=== PATIENT | male | born 1960 | race Hispanic/Latino ===

== ENCOUNTER 2021-02-21 19:58 | Emergency (ER) | payer OTHER ==
[2021-02-21 20:44] LABS: Absolute Lymphocytes (CBC) 2.3 K/uL (0.7-4.9); Basophils % 0.5 % (0-1.3); Hematocrit 48.1 % (39.6-49.0); Lymphocytes % 16.8 % (15.3-44.8); MPV 7.2 fL (7.6-11.3); RBC Red Blood Cell Count 5.25 M/uL (4.33-5.43)
[2021-02-21] MEDS ORDERED: ONDANSETRON 4 MG/2 ML VIAL ONE (20:50)
[2021-02-21 21:01] LABS: ALT/SGPT 26 U/L (12-78); AST/SGOT 20 U/L (15-37); Albumin 4.2 g/dL (3.4-5.0); Alkaline Phosphatase 106 U/L (45-117); BUN Blood Urea Nitrogen 12 mg/dL (7-18); Bicarbonate 23 mmol/L (21-32); Bilirubin Direct 0.1 mg/dL (0-0.2); Bilirubin Total 0.3 mg/dL (0.2-1.0); Glucose Level 189 mg/dL (74-106); Lipase 89 U/L (73-393); Potassium 4.1 mmol/L (3.5-5.1); Protein, Total 8.2 g/dL (6.4-8.2); Sodium Level 137 mmol/L (136-145)
--- NOTE | 2021-02-21 23:27 | ER ---
Nurse's Notes [facility] Name: Jc Arrieta Sr Age: 60 yrs Sex: Male : 1960 Arrival Date: 02/21/2021 Time: 20:01 Bed External Waiting Private MD: Diagnosis: Presentation: 02/21 20:16 Chief complaint: Patient states: Abdominal pain, N/V starting at 12:00. Coronavirus kg screen: Client denies travel out of the [place] in the last 14 days. At this time, unable to obtain information related to travel outside the [place] Client presents with at least one sign or symptom that may indicate coronavirus-19. Standard/surgical mask placed on the client. Provider contacted for isolation considerations. Ebola Screen: Patient negative for fever greater than or equal to 101.5 degrees Fahrenheit, and additional compatible Ebola Virus Disease symptoms Patient denies exposure to infectious person. Patient denies travel to an Ebola-affected area in the 21 days before illness onset. 20:16 Method Of Arrival: Wheelchair kg 20:18 Initial Sepsis Screen: Does the patient meet any 2 criteria? No. Patient's initial kg sepsis screen is negative. Does the patient have a suspected source of infection? No. Patient's initial sepsis screen is negative. Risk Assessment: Do you want to hurt yourself or someone else? Patient reports no desire to harm self or others. Onset of symptoms was February 21, 2021 at 12:00. 20:18 Acuity: RADHA 4 kg Triage Assessment: 20:19 General: Appears in no apparent distress. Behavior is calm, cooperative, appropriate kg for age, quiet. Pain: Complains of pain in abdomen. GI: Reports nausea, vomiting. Historical: - Allergies: 20:19 No Known Allergies; kg - Home Meds: 20:19 metformin 1,000 mg Oral TG24 1 tab once daily [Active]; citalopram 40 mg tab [Active]; kg glimepiride Oral [Active]; aspirin 81 mg Oral chew 1 tab once daily [Active]; - PMHx: 20:19 NDDM; Anxiety; Heart attack; kg - PSHx: 20:19 Cardiac stents; kg - Immunization history:: Adult Immunizations not up to date, Client reports having NOT received the Covid vaccine. - Social history:: Smoking status: Patient reports the use of cigarette tobacco products, smokes one pack cigarettes per day. Patient uses alcohol, weekly. Screenin:23 Abuse screen: Denies threats or abuse. Denies injuries from another. Nutritional kg screening: No deficits noted. Tuberculosis screening: No symptoms or risk factors identified. Fall Risk None identified. Vital Signs: 20:18 BP 150 / 60; Pulse 66; Resp 20; Temp 98.0(O); Pulse Ox 97% on R/A; Weight 90.72 kg (R); kg Height 5 ft. 7 in. (170.18 cm); Pain 8/10; 20:18 Body Mass Index 31.32 (90.72 kg, 170.18 cm) kg ED Course: 20:01 Patient arrived in ED. cf2 20:19 Triage completed. kg 22:57 Sreedhar Cullen PA is PHCP. cp 22:57 Macarena Rosales is Attending Physician. cp Administered Medications: 20:27 Drug: Zofran (Ondansetron) 4 mg Route: IVP; Site: left antecubital; kg Outcome: 23:26 Patient left the ED. em Signatures: Naren Lockwood, RN RN em Sreedhar Cullen PA PA cp Govind Desai cf2 Sonia Block RN RN kg
[2021-02-22 02:03] VITALS: BP 150/60; TEMP 98; O2SAT 97
== END 2021-02-21 23:26 | disposition left against medical advice (07) ==
LOC: ER 19:58
DX: Z53.21 Procedure and treatment not carried out due to patient leaving prior to being seen by health care provider (principal); Z20.822 Contact with and (suspected) exposure to COVID-19
CPT/HCPCS: 85025; 80048; 36415; 80076; 83690; 87804 ×2; 96374; 99282; U0003; J2405